=== PATIENT | female | born 1950 | race Caucasian/White ===

== ENCOUNTER 2017-04-30 20:19 | Emergency (ER) | payer OTHER ==
[~2017-04-30] VITALS: Ht 154.9 cm; Wt 54.4 kg
[~2017-04-30 20:19] MED LIST: ALBUTEROL2.5 MG/0.1; ALLERGY10 M1; ASPIRIN EC325 M1 PO; ATORVASTATIN CA40 MG PO; DESYREL300 MG PO; GLUCOSAMINE HC500 MG PO; NORCO 5-325 TA1 EACH PO; PERCOCET 5-3251 EACH PO; PERIDEX 0.12%473 M1 SSP; RITALIN; UNICOMPLEX M TA1 TA1 PO; ZOLOFT100 MG PO
[2017-04-30 20:45] LABS: ABSOLUTE NEUTROPHILS 4.1 thou/uL (1.4-8.2); BASOPHILS 0.5 % (0.0-2.0); EOSINOPHILS 4.4 % (0.0-3.0); HEMATOCRIT 41.1 % (37.0-47.0); HEMOGLOBIN 13.5 gm/dL (12.0-15.0); LYMPHOCYTES 22.1 % (24.0-44.0); MCH 28.3 pg (26.0-34.0); MCHC 32.8 g/dL (28.0-37.0); MCV 86.3 fL (80.0-100.0); PLATELET COUNT 224 thou/uL (150-400); RBC 4.77 mil/uL (4.20-5.00); RDW 13.7 % (10.5-14.5); WBC 6.1 thou/uL (4.0-11.0)
[2017-04-30 20:48] LABS: MANUAL DIFF NO
[2017-04-30 20:54] LABS: CALCIUM 9.8 mg/dL (8.5-10.1); POTASSIUM 4.1 mmol/L (3.5-5.1)
[2017-04-30 21:00] LABS: ALBUMIN 4.2 g/dL (3.4-5.0); TOTAL BILIRUBIN 0.4 mg/dL (<0.1-1.0); TOTAL PROTEIN 7.3 g/dL (6.4-8.2)
[2017-04-30] MEDS ORDERED: RECTASMOOTHE30 GM TOP (23:31)
[2017-04-30] MEDS ORDERED: COLACE100 MG PO (23:31)
[2017-04-30 23:55] VITALS: BP 102/55
== END 2017-04-30 23:57 | disposition home or self-care (01) ==
LOC: ER 20:19
PROVIDERS: Physician Assistant
DX: K59.00 Constipation, unspecified (principal); J45.909 Unspecified asthma, uncomplicated; E78.00 Pure hypercholesterolemia, unspecified; F41.9 Anxiety disorder, unspecified; F32.9 Major depressive disorder, single episode, unspecified; Z90.710 Acquired absence of both cervix and uterus; Z86.73 Personal history of transient ischemic attack (TIA), and cerebral infarction without residual deficits; Z98.890 Other specified postprocedural states; Z88.1 Allergy status to other antibiotic agents

== ENCOUNTER 2018-12-12 21:15 | Emergency (ER) | payer OTHER ==
[~2018-12-12] VITALS: Ht 154.9 cm; Wt 61.2 kg
[~2018-12-12 21:15] MED LIST changes: +COLACE100 MG PO; +RECTASMOOTHE30 GM TOP
[2018-12-13 00:58] VITALS: BP 149/74
== END 2018-12-13 01:05 | disposition home or self-care (01) ==
LOC: ER 21:15
DX: K56.41 Fecal impaction (principal); E78.00 Pure hypercholesterolemia, unspecified; G89.29 Other chronic pain; J45.909 Unspecified asthma, uncomplicated; Z86.73 Personal history of transient ischemic attack (TIA), and cerebral infarction without residual deficits; Z90.710 Acquired absence of both cervix and uterus; Z98.890 Other specified postprocedural states; Z88.1 Allergy status to other antibiotic agents

== ENCOUNTER 2020-01-20 16:00 | Emergency (ER) | payer OTHER ==
[~2020-01-20] VITALS: Ht 154.9 cm; Wt 59.0 kg
[2020-01-20 16:31] LABS: URINE BILIRUBIN NEGATIVE (Negative); URINE BLOOD NEGATIVE (Negative); URINE CLARITY CLEAR; URINE COLOR YELLOW; URINE GLUCOSE-RANDOM* NEGATIVE (Negative); URINE KETONES NEGATIVE (Negative); URINE LEUKOCYTES-REFLEX NEGATIVE (Negative); URINE NITRITE-REFLEX NEGATIVE (Negative); URINE PROTEIN (DIPSTICK) NEGATIVE (Negative); URINE SPECIFIC GRAVITY 1.015 (1.005-1.035); URINE UROBILINOGEN 0.2 E.U./dl (0.2-1.0)
[2020-01-20 18:32] VITALS: BP 121/64
== END 2020-01-20 18:35 | disposition home or self-care (01) ==
LOC: ER 16:00
PROVIDERS: Nurse Practitioner Family
DX: K59.00 Constipation, unspecified (principal); G89.29 Other chronic pain; E78.00 Pure hypercholesterolemia, unspecified; J45.909 Unspecified asthma, uncomplicated; Z88.1 Allergy status to other antibiotic agents; Z88.8 Allergy status to other drugs, medicaments and biological substances; Z79.82 Long term (current) use of aspirin; Z79.899 Other long term (current) drug therapy; Z90.710 Acquired absence of both cervix and uterus; Z86.73 Personal history of transient ischemic attack (TIA), and cerebral infarction without residual deficits; Z90.89 Acquired absence of other organs

== ENCOUNTER 2020-10-14 20:23 | Emergency (ER) | payer OTHER ==
[~2020-10-14] VITALS: Ht 152.4 cm; Wt 56.7 kg
[2020-10-14 21:02] VITALS: BP 140/99
[2020-10-14] MEDS ORDERED: NORCO5 PO (22:54)
== END 2020-10-15 00:15 | disposition home or self-care (01) ==
LOC: ER 20:23
DX: S42.412A Displaced simple supracondylar fracture without intercondylar fracture of left humerus, initial encounter for closed fracture (principal); J45.909 Unspecified asthma, uncomplicated; E78.5 Hyperlipidemia, unspecified; G89.29 Other chronic pain; M54.9 Dorsalgia, unspecified; Z90.89 Acquired absence of other organs; Z90.710 Acquired absence of both cervix and uterus; Z79.899 Other long term (current) drug therapy; Z79.82 Long term (current) use of aspirin; Z88.1 Allergy status to other antibiotic agents; Z88.8 Allergy status to other drugs, medicaments and biological substances; W18.39XA Other fall on same level, initial encounter; Y93.89 Activity, other specified; Y92.89 Other specified places as the place of occurrence of the external cause; Y99.8 Other external cause status

== ENCOUNTER → 2020-10-18 | Outpatient (CLI) | payer OTHER ==
[~2020-10-18] MED LIST changes: -ALBUTEROL2.5 MG/0.1; +ALBUTEROL2.5 MG/0.1 INH; +AMITRIPTYLINE H50 M2 PO; +ASA81BEC PO; +CALCIUM500 MG PO; +ESCITALOPRAM OX20 MG PO; +FISH OIL 1,0001 EAC9 PO; +FOSAMAX 70 MG T70 MG PO; +LINZESS145 MCG PO; +LIPITOR40 MG PO; +MELATONIN10 M3 PO; +NORCO5 PO
== END ==
LOC: LAB 09:06
PROVIDERS: Student in an Organized Health Care Education/Training Program; ATTEND Orthopaedic Surgery
DX: Z01.812 Encounter for preprocedural laboratory examination (principal); Z20.822 Contact with and (suspected) exposure to COVID-19

== ENCOUNTER 2020-10-19 08:37 | Day surgery (SDC) | payer OTHER ==
[~2020-10-19] VITALS: Ht 154.9 cm; Wt 54.4 kg
--- NOTE | 2020-10-22 10:10 | O ---
[facility] [place] [address] OPERATIVE REPORT Name: JORGE LUIS VILLALBA Room #: DEP [facility].#: [id number] Admission: 10/19/20 Attend Phys: Minh Peraza MD Discharge: 10/19/20 Date of : 48 Report #: [id number] THIS REPORT FOR: cc: LINDA FAUSTIN MD Physician not on staff Minh Peraza MD ~ DATE OF SERVICE: 10/19/2020 PREOPERATIVE DIAGNOSIS: Left distal humerus fracture. POSTOPERATIVE DIAGNOSIS: Left distal humerus fracture. PROCEDURE: Open reduction and internal fixation of left distal humerus fracture. SURGEON: Minh Peraza MD INDICATIONS: This very frail 70-year-old female has moderate chronic neurologic problems and balance problems and fell injuring the left elbow. X-rays confirmed a fracture at the distal aspect of the humerus, which is transverse and in the low supracondylar region. We have discussed treatment options and elected to go ahead with surgical repair. DESCRIPTION OF PROCEDURE: The patient was taken to the operating room where she was placed under general anesthesia. Prophylactic intravenous antibiotics were administered. The left arm and hand were meticulously prepped and draped. An Esmarch bandage was used about the upper arm as a gentle tourniquet. C-arm was used to visualize the fracture. The fracture was gently manipulated and actually quite good alignment was reestablished. I considered a posterior approach, which would allow access to both the medial and lateral aspects. Given the current findings, it seemed that I could probably establish a satisfactory fixation with a lateral approach and avoid exposure on the medial side and avoid taking down the olecranon. A lateral skin incision was made exposing the lateral aspect of the distal humerus. A subperiosteal exposure was established, so that I could palpate across the midline toward the medial side, essentially anatomic alignment was established. This was held temporarily with several smooth K wires. The alignment and position seemed to be suitable for a locking lateral plate. The Acumed distal humeral locking plate system was utilized. A 6-hole plate was applied along the lateral aspect of the distal humerus, placing this as distal as possible as the fracture is quite distal. With this in place, 6 screws were positioned trying to engage the distal fragment and angling screws, so that they would secure the medial side in acceptable position as well. The screws were placed carefully with C-arm guidance and seemed to have satisfactory position and purchase. The stability was assessed and felt to be quite satisfactory. The elbow seems to have some [facility] [address] [place] [address] OPERATIVE REPORT Name: JORGE LUIS VILLALBA Room #: DEP [facility]#: [id number] Admission: 10/19/20 Attend Phys: Minh Peraza MD Discharge: 10/19/20 Date of : 48 Report #: [id number] limitation in flexion and palpating, I could not find any significant prominence of either screw or plate. I did not feel that further adjustments would be very helpful and felt that the best approach was to accept the current fixation. The C-arm views reveal near anatomic alignment, although there is some comminution. At this point, the Esmarch bandage was removed. Good hemostasis was established. The wound was copiously irrigated. The wound was then closed using multiple 2-0 Monocryl sutures and bernice in the skin. A sterile dressing was applied. The patient was then awakened and returned to recovery room in good condition. <ELECTRONICALLY SIGNED> By: Minh Peraza MD 10/22/20 [id number] Minh Peraza MD /nt
== END 2020-10-19 14:25 | disposition home or self-care (01) ==
LOC: OR 08:37 → TBA 12:32 → OR 12:36
PROVIDERS: ATTEND Orthopaedic Surgery
DX: S42.412A Displaced simple supracondylar fracture without intercondylar fracture of left humerus, initial encounter for closed fracture (principal); E78.5 Hyperlipidemia, unspecified; F41.9 Anxiety disorder, unspecified; J45.909 Unspecified asthma, uncomplicated; Z98.890 Other specified postprocedural states; Z79.899 Other long term (current) drug therapy; Z86.73 Personal history of transient ischemic attack (TIA), and cerebral infarction without residual deficits; Z90.710 Acquired absence of both cervix and uterus; Z85.41 Personal history of malignant neoplasm of cervix uteri; X58.XXXA Exposure to other specified factors, initial encounter; Y93.K1 Activity, walking an animal; Y92.89 Other specified places as the place of occurrence of the external cause; Y99.8 Other external cause status
CPT/HCPCS: 50010; 50101; 50386; 50417; 51412; 56525; 58648; 58651; 58657; 58658; 58659; 58669; 58672; 62110; 62900; 70005